=== PATIENT | female | born 1955 | race African-American/Black ===

== ENCOUNTER 2020-09-08 20:50 | Inpatient (IN) | payer MEDICARE, OTHER ==
[~2020-09-08] VITALS: Ht 172.7 cm; Wt 108.0 kg
[2020-09-08 20:45] VITALS: BP 131/55
[2020-09-08 20:50] VITALS: BP 131/53
[~2020-09-08 20:50] MED LIST: DILT-108 MT; IBUP-2029 PO; LOSA100T3 MT; hctz
[2020-09-08] MEDS ORDERED: NA PHOS,M-B/NA PHOS,DI-BA ENEMA 118ML PR PRN (22:00)
[2020-09-08] MEDS ORDERED: ACETAMINOPHEN 325MG TABLET PO PRN (22:00)
[2020-09-08] MEDS ORDERED: DIPHENHYDRAMINE 25MG CAPSULE PO PRN (22:00)
[2020-09-08] MEDS ORDERED: DOCUSATE SODIUM 100MG CAPSULE PO PRN (22:00)
[2020-09-08] MEDS ORDERED: IPRATROPIUM/ALBUTEROL 0.5-3(2.5)MG/3ML NEB HHN PRN (22:00)
[2020-09-08] MEDS ORDERED: CLONIDINE 0.1MG TABLET PO PRN (22:00)
[2020-09-09 08:02] VITALS: BP 170/68
[2020-09-09] MEDS: ENOXAPARIN 100MG/ML SYR SUBCUT SCH ×2 (08:21→22:03)
[2020-09-09] MEDS: HYDROCHLOROTHIAZIDE 25MG TABLET PO SCH (08:21)
[2020-09-09] MEDS: DILTIAZEM HCL 120MG CAPSULE CD 24HR PO SCH (08:23)
[2020-09-09] MEDS: LOSARTAN POTASSIUM 100 MG TABLET PO SCH (08:23)
[2020-09-09] MEDS: TRAMADOL 50MG TABLET PO PRN (09:03)
[2020-09-09] MEDS: IPRATROPIUM/ALBUTEROL 0.5-3(2.5)MG/3ML NEB HHN SCH ×3 (09:27→22:06)
[2020-09-09] MEDS: ONDANSETRON HCL 4MG TABLET PO PRN (14:38)
[2020-09-09] MEDS: DOCUSATE SODIUM 100MG CAPSULE PO SCH ×2 (14:38→16:56)
[2020-09-09] MEDS: LIDOCAINE/PRILOCAINE CREAM 5 GM TUBE TOP SCH (16:44)
[2020-09-09 20:00] VITALS: BP 115/73
[2020-09-10] MEDS: IPRATROPIUM/ALBUTEROL 0.5-3(2.5)MG/3ML NEB HHN SCH
[2020-09-10 08:00] VITALS: BP 149/64
[2020-09-10] MEDS: DILTIAZEM HCL 120MG CAPSULE CD 24HR PO SCH (08:52)
[2020-09-10] MEDS: LOSARTAN POTASSIUM 100 MG TABLET PO SCH (08:53)
[2020-09-10] MEDS: HYDROCHLOROTHIAZIDE 25MG TABLET PO SCH (08:53)
[2020-09-10] MEDS: TRAMADOL 50MG TABLET PO PRN (08:54)
[2020-09-10] MEDS: DOCUSATE SODIUM 100MG CAPSULE PO SCH ×2 (08:55→17:10)
[2020-09-10] MEDS: LIDOCAINE/PRILOCAINE CREAM 5 GM TUBE TOP SCH (09:44)
[2020-09-10] MEDS: ENOXAPARIN 100MG/ML SYR SUBCUT SCH ×2 (09:45→20:55)
[2020-09-10] MEDS ORDERED: LIDOCAINE 5% PATCH TOP SCH (13:15)
[2020-09-10] MEDS: LIDOCAINE 5% PATCH TOP SCH (13:33)
[2020-09-10] MEDS: CELECOXIB 100MG CAPSULE PO SCH (15:30)
[2020-09-10 20:00] VITALS: BP 126/69
[2020-09-11 06:38] LABS: BASOPHILS % 0.4 % (0.0-2.0); EOSINOPHILS % 6.1 % (0.0-5.0); HEMATOCRIT. 40.6 % (36.0-48.0); HEMOGLOBIN. 12.9 g/dL (12.0-16.0); MEAN CORPUSCULAR HEMOGLOBIN 27.5 pg (28.0-32.0); MEAN CORPUSCULAR VOLUME 86.9 fL (81.0-99.0); MEAN PLATELET VOLUME 10.3 fl (7.4-10.4); NEUTROPHILS % 57.5 % (40.0-76.0); PLATELET 192 x1000/uL (130-400); RED BLOOD CELL COUNT 4.68 mill/uL (4.2-5.4); RED CELL DISTRIBUTION WIDTH 17.1 % (11.6-14.6)
[2020-09-11 06:41] LABS: INR 1.1; PROTHROMBIN TIME 11.4 sec (9.6-11.0)
[2020-09-11 08:30] VITALS: BP 112/57
[2020-09-11] MEDS: ENOXAPARIN 100MG/ML SYR SUBCUT SCH (08:46)
[2020-09-11] MEDS: DOCUSATE SODIUM 100MG CAPSULE PO SCH ×2 (08:47→17:12)
[2020-09-11] MEDS: DILTIAZEM HCL 120MG CAPSULE CD 24HR PO SCH (08:47)
[2020-09-11] MEDS: LOSARTAN POTASSIUM 100 MG TABLET PO SCH (08:47)
[2020-09-11] MEDS: HYDROCHLOROTHIAZIDE 25MG TABLET PO SCH (08:47)
[2020-09-11] MEDS: CELECOXIB 100MG CAPSULE PO SCH (08:47)
[2020-09-11] MEDS: LIDOCAINE 5% PATCH TOP SCH ×2 (08:47→17:49)
[2020-09-11 11:30] VITALS: BP 136/79
[2020-09-11] MEDS: TRAMADOL 50MG TABLET PO PRN ×2 (11:31→17:49)
[2020-09-11 20:00] VITALS: BP 97/56
[2020-09-11] MEDS: ENOXAPARIN 120MG/0.8ML SYR SUBCUT SCH (20:57)
[2020-09-12 08:15] VITALS: BP 146/84
[2020-09-12 08:18] LABS: CHLORIDE 99 mEq/L (98-107)
[2020-09-12] MEDS: LIDOCAINE 5% PATCH TOP SCH ×2 (09:00)
[2020-09-12] MEDS: DILTIAZEM HCL 120MG CAPSULE CD 24HR PO SCH (09:05)
[2020-09-12] MEDS: DOCUSATE SODIUM 100MG CAPSULE PO SCH ×2 (09:05→17:00)
[2020-09-12] MEDS: ENOXAPARIN 120MG/0.8ML SYR SUBCUT SCH ×2 (09:06→20:58)
[2020-09-12] MEDS: CELECOXIB 100MG CAPSULE PO SCH (09:06)
[2020-09-12] MEDS: HYDROCHLOROTHIAZIDE 25MG TABLET PO SCH (09:06)
[2020-09-12] MEDS: LOSARTAN POTASSIUM 100 MG TABLET PO SCH (09:06)
[2020-09-12] MEDS ORDERED: LACTULOSE 20G/30ML UDC PO NR (09:45)
[2020-09-12 10:04] LABS: CREATINE KINASE 44 IU/L (26-192)
[2020-09-12] MEDS: SODIUM CHLORIDE 0.9% 1,000 ML IV SCH (11:00)
[2020-09-12] MEDS: HYDRALAZINE HCL 50MG TABLET PO SCH ×2 (13:39→20:57)
[2020-09-12] MEDS: ONDANSETRON HCL 4MG TABLET PO PRN (15:06)
[2020-09-12 19:21] LABS: CLARITY URINE TURBID (CLEAR); COLOR URINE YELLOW (YELLOW); KETONES URINE NEGATIVE (NEGATIVE); LEUKOCYTE ESTERASE URINE 3+ (NEGATIVE); NITRITE URINE POSITIVE (NEGATIVE); OCCULT BLOOD URINE NEGATIVE (NEGATIVE); PH URINE 5.5 (4.5-8.0); PROTEIN URINE TRACE (NEGATIVE); SPECIFIC GRAVITY URINE 1.011 (1.005-1.030); UROBILINOGEN URINE 0.2 E.U./dL (0.2-1.0)
[2020-09-12 20:00] VITALS: BP 110/52
[2020-09-12] MEDS ORDERED: LIDOCAINE 5% PATCH TOP SCH (22:30)
[2020-09-13] MEDS: SODIUM CHLORIDE 0.9% 1,000 ML IV SCH (05:40)
[2020-09-13] MEDS: HYDRALAZINE HCL 50MG TABLET PO SCH ×3 (06:00→21:59)
[2020-09-13 07:31] LABS: PHOSPHORUS 3.3 mg/dL (2.5-4.9)
[2020-09-13 08:00] VITALS: BP 124/53
[2020-09-13] MEDS: DOCUSATE SODIUM 100MG CAPSULE PO SCH ×2 (08:43→18:14)
[2020-09-13] MEDS: DILTIAZEM HCL 120MG CAPSULE CD 24HR PO SCH (08:43)
[2020-09-13] MEDS: ENOXAPARIN 120MG/0.8ML SYR SUBCUT SCH ×2 (08:44→21:23)
[2020-09-13] MEDS: ONDANSETRON HCL 4MG TABLET PO PRN (08:46)
[2020-09-13] MEDS ORDERED: PANTOPRAZOLE 40MG DR TABLET PO NR (10:00)
[2020-09-13] MEDS ORDERED: MAGNESIUM/ALUMINUM HYDROXIDE/SIMETHICONE 30ML UDC PO PRN (10:00)
[2020-09-13] MEDS: CEFTRIAXONE 1,000 MG in DEXTROSE 5% WATER 50 ML IV SCH (11:32)
[2020-09-13] MEDS: TRAMADOL 50MG TABLET PO PRN (13:50)
[2020-09-13 20:00] VITALS: BP 112/70
[2020-09-13] MEDS: LIDOCAINE 5% PATCH TOP SCH ×2 (21:23→22:14)
[2020-09-13] MEDS ORDERED: LIDOCAINE 5% PATCH TOP SCH (23:00)
[2020-09-14] MEDS: PANTOPRAZOLE 40MG DR TABLET PO SCH (06:36)
[2020-09-14] MEDS: HYDRALAZINE HCL 50MG TABLET PO SCH ×3 (06:36→21:27)
[2020-09-14] MEDS: SODIUM CHLORIDE 0.9% 1,000 ML IV SCH ×2 (06:36→21:27)
[2020-09-14 07:29] LABS: CHLORIDE 101 mEq/L (98-107)
[2020-09-14 07:30] LABS: BASOPHILS % 0.3 % (0.0-2.0); HEMATOCRIT. 40.5 % (36.0-48.0); LYMPHOCYTES % 17.7 % (20.0-50.0); MEAN CORPUSCULAR HEMOGLOBIN 27.8 pg (28.0-32.0); MEAN CORPUSCULAR VOLUME 86.6 fL (81.0-99.0); MEAN PLATELET VOLUME 10.6 fl (7.4-10.4); MONOCYTES % 10.1 % (2.0-8.0); NEUTROPHILS % 68.9 % (40.0-76.0); PLATELET 203 x1000/uL (130-400); RED BLOOD CELL COUNT 4.67 mill/uL (4.2-5.4); RED CELL DISTRIBUTION WIDTH 17.3 % (11.6-14.6)
[2020-09-14 08:00] VITALS: BP 140/66
[2020-09-14] MEDS: DOCUSATE SODIUM 100MG CAPSULE PO SCH ×2 (08:47→18:25)
[2020-09-14] MEDS: CEFTRIAXONE 1,000 MG in DEXTROSE 5% WATER 50 ML IV SCH (08:47)
[2020-09-14] MEDS: DILTIAZEM HCL 120MG CAPSULE CD 24HR PO SCH (08:47)
[2020-09-14] MEDS: ENOXAPARIN 120MG/0.8ML SYR SUBCUT SCH ×2 (08:49→21:28)
[2020-09-14] MEDS: TRAMADOL 50MG TABLET PO PRN (09:20)
[2020-09-14] MEDS: ONDANSETRON HCL 4MG TABLET PO PRN (10:11)
[2020-09-14 20:00] VITALS: BP 91/50
[2020-09-14] MEDS: LIDOCAINE 5% PATCH TOP SCH ×2 (21:26→21:27)
[2020-09-14] MEDS ORDERED: LIDOCAINE 5% PATCH TOP SCH (22:00)
[2020-09-15] MEDS: PANTOPRAZOLE 40MG DR TABLET PO SCH (06:20)
[2020-09-15] MEDS: HYDRALAZINE HCL 50MG TABLET PO SCH ×3 (06:21→21:40)
[2020-09-15 06:53] LABS: CHLORIDE 100 mEq/L (98-107)
[2020-09-15] MEDS: CEFTRIAXONE 1,000 MG in DEXTROSE 5% WATER 50 ML IV SCH (08:00)
[2020-09-15 08:04] VITALS: BP 98/52
[2020-09-15] MEDS: DOCUSATE SODIUM 100MG CAPSULE PO SCH ×2 (08:39→16:51)
[2020-09-15] MEDS: ENOXAPARIN 120MG/0.8ML SYR SUBCUT SCH ×2 (08:39→21:38)
[2020-09-15] MEDS: DILTIAZEM HCL 120MG CAPSULE CD 24HR PO SCH (08:39)
[2020-09-15] MEDS: LEVOFLOXACIN 250MG TABLET PO SCH (13:24)
[2020-09-15] MEDS: BISACODYL 5MG TABLET PO PRN (16:52)
[2020-09-15 20:00] VITALS: BP 101/50
[2020-09-15] MEDS: LIDOCAINE 5% PATCH TOP SCH ×2 (21:39)
[2020-09-16] MEDS: HYDRALAZINE HCL 50MG TABLET PO SCH ×3 (05:56→22:00)
[2020-09-16] MEDS: PANTOPRAZOLE 40MG DR TABLET PO SCH (06:54)
[2020-09-16] MEDS: TRAMADOL 50MG TABLET PO PRN (06:55)
[2020-09-16 08:01] VITALS: BP 150/50
[2020-09-16] MEDS: ENOXAPARIN 120MG/0.8ML SYR SUBCUT SCH ×2 (08:15→22:04)
[2020-09-16] MEDS: DILTIAZEM HCL 120MG CAPSULE CD 24HR PO SCH (08:16)
[2020-09-16] MEDS: LEVOFLOXACIN 250MG TABLET PO SCH (08:16)
[2020-09-16] MEDS: DOCUSATE SODIUM 100MG CAPSULE PO SCH ×2 (08:19→16:21)
[2020-09-16 11:45] LABS: BASOPHILS % 0.8 % (0.0-2.0); EOSINOPHILS % 2.9 % (0.0-5.0); HEMATOCRIT. 43.3 % (36.0-48.0); HEMOGLOBIN. 13.9 g/dL (12.0-16.0); LYMPHOCYTES % 19.2 % (20.0-50.0); MEAN PLATELET VOLUME 10.3 fl (7.4-10.4); MONOCYTES % 6.9 % (2.0-8.0); NEUTROPHILS % 70.2 % (40.0-76.0); PLATELET 240 x1000/uL (130-400); RED BLOOD CELL COUNT 4.97 mill/uL (4.2-5.4); RED CELL DISTRIBUTION WIDTH 17.8 % (11.6-14.6)
[2020-09-16 12:20] LABS: CHLORIDE 99 mEq/L (98-107)
[2020-09-16 13:00] VITALS: BP 133/67
[2020-09-16 20:00] VITALS: BP 100/53
[2020-09-16] MEDS: LIDOCAINE 5% PATCH TOP SCH ×2 (22:04→22:06)
[2020-09-17] MEDS: HYDRALAZINE HCL 50MG TABLET PO SCH ×3 (06:33→22:00)
[2020-09-17 07:36] VITALS: BP 137/64
[2020-09-17] MEDS: LEVOFLOXACIN 250MG TABLET PO SCH (08:40)
[2020-09-17] MEDS: FAMOTIDINE 20MG TABLET PO SCH ×2 (08:40→22:46)
[2020-09-17] MEDS: BISACODYL 5MG TABLET PO PRN (08:40)
[2020-09-17] MEDS: DOCUSATE SODIUM 100MG CAPSULE PO SCH ×2 (08:40→16:05)
[2020-09-17] MEDS: DILTIAZEM HCL 120MG CAPSULE CD 24HR PO SCH (08:40)
[2020-09-17] MEDS: ENOXAPARIN 120MG/0.8ML SYR SUBCUT SCH ×2 (08:40→22:46)
[2020-09-17] MEDS: TRAMADOL 50MG TABLET PO PRN (08:41)
[2020-09-17 12:30] VITALS: BP 131/62
[2020-09-17] MEDS: ONDANSETRON HCL 4MG TABLET PO PRN (14:45)
[2020-09-17] MEDS: BISACODYL 5MG TABLET PO SCH (16:05)
[2020-09-17 18:43] VITALS: BP 152/82
[2020-09-17 18:44] VITALS: BP_SYST 132; BP_SYST 156; BP_DIAS 111; BP_DIAS 76
[2020-09-17 20:00] VITALS: BP 111/52
[2020-09-17] MEDS ORDERED: METOPROLOL TARTRATE 25MG TABLET PO SCH (21:00)
[2020-09-17] MEDS: LIDOCAINE 5% PATCH TOP SCH ×2 (22:47→22:48)
[2020-09-18] MEDS: HYDRALAZINE HCL 50MG TABLET PO SCH ×2 (06:00→13:49)
[2020-09-18 08:00] VITALS: BP 123/59
[2020-09-18 08:14] LABS: BASOPHILS % 0.5 % (0.0-2.0); EOSINOPHILS % 2.9 % (0.0-5.0); HEMATOCRIT. 37.4 % (36.0-48.0); HEMOGLOBIN. 11.9 g/dL (12.0-16.0); LYMPHOCYTES % 20.9 % (20.0-50.0); MEAN CORPUSCULAR HEMOGLOBIN 27.5 pg (28.0-32.0); MEAN CORPUSCULAR VOLUME 85.9 fL (81.0-99.0); MEAN PLATELET VOLUME 10.2 fl (7.4-10.4); MONOCYTES % 9.6 % (2.0-8.0); NEUTROPHILS % 66.1 % (40.0-76.0); PLATELET 205 x1000/uL (130-400); RED BLOOD CELL COUNT 4.35 mill/uL (4.2-5.4); RED CELL DISTRIBUTION WIDTH 17.6 % (11.6-14.6)
[2020-09-18 08:18] LABS: CHLORIDE 102 mEq/L (98-107)
[2020-09-18] MEDS: BISACODYL 5MG TABLET PO SCH (08:22)
[2020-09-18] MEDS: DOCUSATE SODIUM 100MG CAPSULE PO SCH ×2 (08:23→17:00)
[2020-09-18] MEDS: DILTIAZEM HCL 120MG CAPSULE CD 24HR PO SCH (08:23)
[2020-09-18] MEDS: LEVOFLOXACIN 250MG TABLET PO SCH (08:23)
[2020-09-18] MEDS: FAMOTIDINE 20MG TABLET PO SCH (08:23)
[2020-09-18 08:25] LABS: AMYLASE 35 IU/L (25-115)
[2020-09-18] MEDS: ENOXAPARIN 120MG/0.8ML SYR SUBCUT SCH (08:26)
[2020-09-18 12:56] VITALS: BP 107/50
[2020-09-18] MEDS ORDERED: LIDOCAINE 5% PATCH TOP NR (13:00)
[2020-09-18 13:51] VITALS: BP 123/59
[2020-09-18 14:49] VITALS: BP 140/72
[2020-09-18] MEDS ORDERED: METOPROLOL TARTRATE 25MG TABLET PO SCH (15:00)
== END 2020-09-18 16:45 | disposition home health service (06) | DRG 554 ==
PROVIDERS: ADMIT Psychiatry & Neurology Neurology; ATTEND Internal Medicine Critical Care Medicine
DX: M16.11 Unilateral primary osteoarthritis, right hip (principal); E87.1 Hypo-osmolality and hyponatremia; N17.9 Acute kidney failure, unspecified; N30.00 Acute cystitis without hematuria; E66.01 Morbid (severe) obesity due to excess calories; E83.52 Hypercalcemia; G47.33 Obstructive sleep apnea (adult) (pediatric); J44.9 Chronic obstructive pulmonary disease, unspecified; K21.9 Gastro-esophageal reflux disease without esophagitis; M48.061 Spinal stenosis, lumbar region without neurogenic claudication; K59.00 Constipation, unspecified; I11.9 Hypertensive heart disease without heart failure; Z86.718 Personal history of other venous thrombosis and embolism; Z86.73 Personal history of transient ischemic attack (TIA), and cerebral infarction without residual deficits; Z95.828 Presence of other vascular implants and grafts; Z99.81 Dependence on supplemental oxygen; Z87.891 Personal history of nicotine dependence; Z79.899 Other long term (current) drug therapy; Z68.36 Body mass index [BMI] 36.0-36.9, adult
CPT/HCPCS: 36415; 74018; 76770; 80048; 80053; 81003; 82150; 82550; 83735; 83930; 83935; 83970; 84100; 84443; 85025; 94640; 97110; 97112; 97116; 97162; 97166; 97530; 97535; J0696; J1650; J7030; J7040; J7060; Q0162; Q0163